=== PATIENT | female | born 1995 | race Caucasian/White ===

== ENCOUNTER 2022-02-11 16:27 | Inpatient (IN) | payer OTHER ==
[2022-02-11] MEDS ORDERED: Ondansetron 4 MG/2 ML SDV IVPUSH PRN (16:57)
[2022-02-11] MEDS ORDERED: Sodium Chloride 0.9% 10 ML Syringe FLUSH PRN (16:57)
[2022-02-11] MEDS ORDERED: Nalbuphine HCl 10 MG/ 1ML Amp IVPUSH PRN (16:57)
[2022-02-11] MEDS ORDERED: Oxytocin/Lactated Ringers 10 UNIT/1,000 ML BAG IV SCH ×2 (17:00)
[2022-02-11 17:45] LABS: ESTIMATED GFR 105 mL/min (>60)
[2022-02-11] MEDS ORDERED: ceFAZolin 2 GM in Sodium Chloride 0.9% 50 ML IV ONE (18:00)
[2022-02-11] MEDS: Lactated Ringers 1,000 ML IV SCH ×2 (18:04→23:45)
[2022-02-11] MEDS: Sodium Chloride 0.9% 10 ML Syringe FLUSH SCH (23:42)
[2022-02-12] MEDS ORDERED: Lidocaine 1% 10 ML MDV ONE
[2022-02-12] MEDS ORDERED: Phenylephrine HCl In 0.9% NaCl 1 MG/10 ML Vial ONE
[2022-02-12] MEDS ORDERED: ePHEDrine 50 MG/ML SDV IVPUSH PRN (00:03)
[2022-02-12] MEDS ORDERED: fentaNYL 100 MCG/2 ML SDV EPIDUR PRN (00:03)
[2022-02-12] MEDS ORDERED: diphenhydrAMINE 50 MG/ML SDV IVPUSH PRN (00:03)
[2022-02-12] MEDS: Bupivacaine/fentaNYL/NS 100 ML Bag EPIDUR PRN ×2 (00:47→11:04)
[2022-02-12] MEDS: Lactated Ringers 1,000 ML IV SCH ×2 (01:53→09:05)
[2022-02-12] MEDS: ceFAZolin 1 GM in Sodium Chloride 0.9% 100 ML IV SCH ×2 (02:04→09:43)
[2022-02-12] MEDS: Sodium Chloride 0.9% 10 ML Syringe FLUSH SCH (09:04)
[2022-02-12] MEDS ORDERED: Methylergonovine 0.2 MG/1 ML Amp IM PRN (15:59)
[2022-02-12] MEDS ORDERED: Misoprostol 100 MCG Tab PO ONE (16:00)
[2022-02-12] MEDS ORDERED: Witch Hazel Medicated Pads 40/Jar TOP PRN (16:26)
[2022-02-12] MEDS ORDERED: Benzocaine/Menthol 20%-0.5% Spray 78 GM Cannister TOP PRN (16:26)
[2022-02-12] MEDS ORDERED: Docusate Sodium 100 MG Cap PO PRN (16:26)
[2022-02-12] MEDS ORDERED: Acetaminophen 325 MG Tab PO PRN (16:26)
[2022-02-13] MEDS: Ibuprofen 600 MG Tab PO PRN ×3 (03:16→21:27)
[2022-02-14] MEDS: Ibuprofen 600 MG Tab PO PRN (04:46)
== END 2022-02-14 13:05 | disposition home or self-care (01) | DRG 807 ==
LOC: JD.OBCHECK 16:27 → JD.OB 16:45 → OBSVTOIN 02-12 16:05 → JD.OB 02-12 16:06
PROVIDERS: ADMIT Obstetrics & Gynecology; ATTEND Obstetrics & Gynecology
PROC: 10E0XZZ Delivery of Products of Conception, External Approach (ICD-10-PCS; principal; 2022-02-12)
PROC: 0KQM0ZZ Repair Perineum Muscle, Open Approach (ICD-10-PCS; 2022-02-12)
PROC: 10907ZC Drainage of Amniotic Fluid, Therapeutic from Products of Conception, Via Natural or Artificial Opening (ICD-10-PCS; 2022-02-12)
PROC: 3E0R3BZ Introduction of Anesthetic Agent into Spinal Canal, Percutaneous Approach (ICD-10-PCS; 2022-02-12)
PROC: 00HU33Z Insertion of Infusion Device into Spinal Canal, Percutaneous Approach (ICD-10-PCS; 2022-02-12)
DX: O13.4 Gestational [pregnancy-induced] hypertension without significant proteinuria, complicating childbirth (principal); Z37.0 Single live birth; Z3A.40 40 weeks gestation of pregnancy; O99.824 Streptococcus B carrier state complicating childbirth; O99.344 Other mental disorders complicating childbirth; F41.8 Other specified anxiety disorders; O69.81X0 Labor and delivery complicated by cord around neck, without compression, not applicable or unspecified; O70.1 Second degree perineal laceration during delivery
CPT/HCPCS: 36415; 51702; 59025; 59409; 82565; 82570; 84156; 84450; 84460; 85027; 86592; 86850; 86900; 86901; A9270-GY; J0690; J2405; J2590; J3010; J7120

== ENCOUNTER 2024-10-03 07:15 | Inpatient (IN) | payer OTHER ==
[2024-10-03] MEDS ORDERED: Nalbuphine 10 MG/1 ML Vial IVPUSH PRN (07:25)
[2024-10-03] MEDS ORDERED: Ondansetron 4 MG/2 ML SDV IVPUSH PRN (07:25)
[2024-10-03] MEDS ORDERED: Sodium Chloride 0.9% 10 ML Syringe FLUSH PRN (07:25)
[2024-10-03] MEDS ORDERED: Lidocaine 1% 50 ML MDV INJECT PRN (07:25)
[2024-10-03] MEDS ORDERED: Acetaminophen 325 MG Tab PO PRN (07:25)
[2024-10-03] MEDS ORDERED: Oxytocin/0.9 % Sodium Chloride 30 UNIT/500 ML BAG IV SCH (07:30)
[2024-10-03 07:55] LABS: BASOPHILS PERCENT AUTO 0.4 % (0.0-1.0); EOSINOPHILS PERCENT AUTO 0.1 % (0.0-6.0); HEMATOCRIT 35.6 % (37.0-47.0); HEMOGLOBIN 11.9 gm/dl (12.0-16.0); IMMATURE GRAN ABSOLUTE AUTO 0.04 K/mm3 (0.00-0.05); IMMATURE GRAN PERCENT AUTO 0.5 % (0.0-0.4); LYMPHOCYTES ABSOLUTE AUTO 2.2 K/mm3 (1.0-4.8); LYMPHOCYTES PERCENT AUTO 29.6 % (24.0-44.0); MEAN CORPUSCULAR HEMOGLOBIN 28.2 pg (28.0-32.0); MEAN CORPUSCULAR HGB CONC 33.4 g/dl (32.0-36.0); MEAN CORPUSCULAR VOLUME 84.4 fl (83.0-99.0); MEAN PLATELET VOLUME 11.8 fl (9.4-12.3); MONOCYTES ABSOLUTE AUTO 0.5 K/mm3 (0.0-0.8); MONOCYTES PERCENT AUTO 7.3 % (0.0-8.0); NEUTROPHILS ABSOLUTE AUTO 4.6 K/mm3 (1.8-7.7); NEUTROPHILS PERCENT AUTO 62.1 % (41.0-71.0); PLATELET COUNT,PLT 205 K/mm3 (150-400); RED BLOOD CELL COUNT 4.22 M/mm3 (4.10-5.30); WHITE BLOOD CELL COUNT,WBC 7.44 K/mm3 (3.9-11.3)
[2024-10-03] MEDS: Misoprostol 25 MCG (1/4 of 100 MCG) Tab VAG ONE (08:08)
[2024-10-03] MEDS: ceFAZolin 2 GM in Sodium Chloride 0.9% 50 ML IV ONE (08:08)
[2024-10-03] MEDS: Lactated Ringers 1,000 ML IV SCH (08:11)
[2024-10-03] MEDS ORDERED: Glucagon,Human Recombinant 1 MG Vial IM PRN (09:59)
[2024-10-03] MEDS ORDERED: Misoprostol 25 MCG (1/4 of 100 MCG) Tab VAG PRN (12:00)
[2024-10-03] MEDS: Oxytocin/0.9 % Sodium Chloride 30 UNIT/500 ML BAG IV SCH (12:29)
[2024-10-03 12:39] LABS: CREATININE 0.8 mg/dL (0.55-1.02); EST CRCL DRUG DOSING (CG) 95.05 mL/min
[2024-10-03 13:56] LABS: CREATININE,URINE RAND 290.1 mg/dL (30.0-125.0); PROTEIN CREATININE RATIO,URINE 145.8 mg/g (0-149); PROTEIN,URINE RANDOM 42.3 mg/dL (0.0-11.8)
[2024-10-03] MEDS ORDERED: diphenhydrAMINE 50 MG/ML SDV IVPUSH PRN (14:59)
[2024-10-03] MEDS ORDERED: ePHEDrine 50 MG/ML SDV IVPUSH PRN (14:59)
[2024-10-03] MEDS: Bupivacaine/fentaNYL/NS 100 ML Bag EPIDUR PRN (15:26)
[2024-10-03] MEDS: ceFAZolin 1 GM in Sodium Chloride 0.9% 50 ML IV SCH (16:06)
[2024-10-03] MEDS: Sodium Chloride 0.9% 10 ML Syringe FLUSH SCH (17:27)
[2024-10-04] MEDS: Benzocaine/Menthol 20%-0.5% Spray 78 GM Cannister TOP PRN (01:00)
[2024-10-04] MEDS: Witch Hazel Medicated Pads 40/Jar TOP PRN (01:00)
[2024-10-04] MEDS ORDERED: Docusate Sodium 100 MG Cap PO PRN (03:40)
[2024-10-04] MEDS ORDERED: Acetaminophen 325 MG Tab PO PRN (03:40)
[2024-10-04] MEDS: Ibuprofen 600 MG Tab PO SCH (05:06)
[2024-10-04] MEDS: Insulin Glargine,Human Rec. Analog 100 Units/ML 3 ML Pen SUBCUT SCH (05:07)
[2024-10-04] MEDS: Sertraline 50 MG Tab PO SCH (11:14)
== END 2024-10-05 10:05 | disposition home or self-care (01) | DRG 807 ==
LOC: JD.OB 07:15 → OBSVTOIN 19:39 → JD.OB 19:39
PROVIDERS: ADMIT Obstetrics & Gynecology; ATTEND Obstetrics & Gynecology
PROC: 3E0R3BZ Introduction of Anesthetic Agent into Spinal Canal, Percutaneous Approach (ICD-10-PCS; principal; 2024-10-03)
PROC: 3E0DXGC Introduction of Other Therapeutic Substance into Mouth and Pharynx, External Approach (ICD-10-PCS; principal; 2024-10-03)
PROC: 3E033VJ Introduction of Other Hormone into Peripheral Vein, Percutaneous Approach (ICD-10-PCS; principal; 2024-10-03)
PROC: 10E0XZZ Delivery of Products of Conception, External Approach (ICD-10-PCS; principal; 2024-10-03)
DX: O24.424 Gestational diabetes mellitus in childbirth, insulin controlled (principal); Z37.0 Single live birth; O99.824 Streptococcus B carrier state complicating childbirth; O99.214 Obesity complicating childbirth; O99.344 Other mental disorders complicating childbirth; Z3A.39 39 weeks gestation of pregnancy; Z88.0 Allergy status to penicillin; Z98.890 Other specified postprocedural states; F41.9 Anxiety disorder, unspecified; F32.A Depression, unspecified; Z79.899 Other long term (current) drug therapy; Z79.4 Long term (current) use of insulin; Z79.82 Long term (current) use of aspirin; Z90.49 Acquired absence of other specified parts of digestive tract
CPT/HCPCS: 36415; 51701; 59025; 59409; 82565; 82570; 82947; 83615; 84156; 84450; 84460; 84520; 84550; 85025; 86592; 86850; 86900; 86901; A9270-GY; C1726; C1758; J0690; J3490; J7120; J7999